=== PATIENT | female | born 1945 | race Two or more races ===

== ENCOUNTER 2019-10-28 07:45 | Day surgery (SDC) | payer OTHER ==
[2019-10-28] VITALS (8 sets, daily range): BP systolic 125–161; BP diastolic 58–83
[~2019-10-28] VITALS: Ht 152.4 cm; Wt 83.5 kg
--- NOTE | 2019-10-28 07:07 | Pre-Procedure Note/Attestation ---
Pre-Procedure Note/Attestation Complete Prior to Procedure Planned Procedure: left Procedure Narrative: left shoulder revision scope with possible resection of loose anchors Indications for Procedure Pre-Operative Diagnosis: left shoulder loose anchors Attestation I attest that I discussed the nature of the procedure; its benefits; risks and complications; and alternatives (and the risks and benefits of such alternatives ), prior to the procedure, with the patient (or the patient's legal claims representative). I attest that, if there was a reasonable possibility of needing a blood transfusion, the patient (or the patient's legal claims representative) was given the [facility] standardized written summary, pursuant to the Crispin Arminda Blood Safety Act ([place] Health and Safety Code # 1645, as amended). I attest that I re-evaluated the patient just prior to the surgery and that there has been no change in the patient's H&P, except as documented below: none Isaías Carpenter MD Oct 28, 2019 07:07
[~2019-10-28 07:45] MED LIST: LISINOPRIL20 MG ORAL; METFORMIN HCL850 M1 ORAL; ZOCOR20 M1 ORAL; ceFAZolin 1gm IVPB IVPB ONE; celeBREX 200mg Cap **SURGERY PATIENTS ONLY ORAL ONE; oxyCONTIN 10mg tab ORAL ONE
[2019-10-28] MEDS ORDERED: NS Irrig 4000ml IRRIG ONE (07:46)
[2019-10-28] MEDS ORDERED: celeBREX 200mg Cap **SURGERY PATIENTS ONLY ORAL ONE (08:40)
[2019-10-28] MEDS ORDERED: oxyCONTIN 20mg tab ORAL ONE (08:40)
[2019-10-28] MEDS ORDERED: oxyCONTIN 10mg tab ORAL ONE (08:44)
[2019-10-28] MEDS ORDERED: DiphenhydrAMINE 50mg/ml Inj IVP PRN (09:15)
[2019-10-28] MEDS ORDERED: Metoclopramide 10mg/2ml Inj IVP PRN (09:15)
[2019-10-28] MEDS ORDERED: Midazolam 2mg/2ml Inj IVP PRN (09:15)
[2019-10-28] MEDS ORDERED: HYDROcodone/Acetamin 7.5/325 tab ORAL PRN (09:15)
[2019-10-28] MEDS ORDERED: oxyCODONE HCL/Acetaminophen 5/325mg ORAL PRN (09:15)
[2019-10-28] MEDS ORDERED: Labetalol 5mg/ml 20ml vial IV PRN (09:15)
[2019-10-28] MEDS ORDERED: fentaNYL 100 mcg/2 mL IV PRN (09:15)
[2019-10-28] MEDS ORDERED: LORazepam Inj 2mg/ml 1ml IV PRN (09:15)
[2019-10-28] MEDS ORDERED: HYDROcodone/Acetamin 5/325 tab ORAL PRN ×2 (09:15)
[2019-10-28] MEDS ORDERED: Hydromorphone 0.5mg/0.5ml inj IVP PRN (09:15)
[2019-10-28] MEDS ORDERED: Ketorolac 30mg Inj IV PRN ×2 (09:15)
[2019-10-28] MEDS ORDERED: Atropine Sulfate 0.4mg/ml inj IVP PRN (09:15)
[2019-10-28] MEDS ORDERED: HYDROmorphone 1mg/ml Carpuject SUBQ PRN (09:15)
[2019-10-28] MEDS ORDERED: LR 1000ml 1,000 ML IVLG SCH (09:15)
[2019-10-28] MEDS ORDERED: Tylenol #3 tab (300mg/30mg) ORAL PRN (09:15)
[2019-10-28] MEDS ORDERED: Meperidine 25mg/0.5ml Inj (FOR RIGORS ONLY) IV PRN (09:15)
[2019-10-28] MEDS ORDERED: propofoL 1,000mg/100ml IV ONE (09:30)
--- NOTE | 2019-10-28 09:33 | Anethesia Preoperative Eval ---
Anesthesia Pre-op PMH/ROS General Date of Evaluation: Oct 28, 2019 Time of Evaluation: 09:36 Anesthesiologist: Jp ASA Score: ASA 3 Mallampati Score Class I : Soft palate, uvula, fauces, pillars visible Class II: Soft palate, uvula, fauces visible Class III: Soft palate, base of uvula visible Class IV: Only hard plate visible Mallampati Classification: Class II Surgeon: Jayden Diagnosis: L Shoulder Pain Surgical Procedure: L Shoulder Arthroscopy Anesthesia History: none Family History: no anesthesia problems Allergies: Coded Allergies: No Known Allergies (Unverified , 10/28/19) Medications: see eMAR Patient NPO?: Yes Past Medical History Cardiovascular: Reports: HTN, other - HL Endocrine: Reports: DM HEENT: Reports: cataract (L), cataract (R) PSxH Narrative: Cholecystectomy, R Femur Sx, B Shoulder SX Anesthesia Pre-op Phys. Exam Physician Exam Last Vital Signs Date Time Temp Pulse Resp B/P (MAP) Pulse Ox O2 Delivery O2 Flow Rate FiO2 10/28/19 08:19 Room Air 10/28/19 08:18 98.0 78 16 125/58 98 Constitutional: NAD Neurologic: CN 2-12 intact Cardiovascular: RRR Respiratory: CTA Gastrointestinal: S/NT/ND Airway Exam Mallampati Score: Class II MO: limited ROM: limited Teeth: missing, intact Anesthesia Pre-op A/P Risk Assessment & Plan Assessment: ASA 3 Plan: GA SED, L Supraclavicular Block Status Change Before Surgery: No Pre-Antibiotics Dru Grams Ancef IV Given Within 1 Hr of Incision: Yes Time Given: 10:01 Roney Trammell MD Oct 28, 2019 09:33
--- NOTE | 2019-10-28 09:34 | Immediate Post-Op Evaluation ---
Immediate Post-Op Evalulation Immediate Post-Op Evalulation Procedure: L Shoulder Arthroscopy Date of Evaluation: Oct 28, 2019 Time of Evaluation: 12:09 IV Fluids: 600 LR Blood Products: 0 Estimated Blood Loss: 30 Urinary Output: 0 Blood Pressure Systolic: 160 Blood Pressure Diastolic: 83 Pulse Rate: 78 Respiratory Rate: 16 O2 Sat by Pulse Oximetry: 100 Temperature (Fahrenheit): 97.4 Pain Score (1-10): 1 Nausea: No Vomiting: No Complications 0 Patient Status: awake, reacts, patent, extubated, none Hydration Status: adequate Dru Grams Ancef IV Given Within 1 Hr of Incision: Yes Time Given: 10:01 Roney Trammell MD Oct 28, 2019 09:34
--- NOTE | 2019-10-28 09:35 | 48 Hour Post Anesthesia Eval ---
Post Anesthesia Evaluation Procedure: L Shoulder Arthroscopy Date of Evaluation: Oct 28, 2019 Time of Evaluation: 14:23 Blood Pressure Systolic: 154 0: 82 Pulse Rate: 76 Respiratory Rate: 18 Temperature (Fahrenheit): 98 O2 Sat by Pulse Oximetry: 100 Airway: patent Nausea: No Vomiting: No Pain Intensity: 1 Hydration Status: adequate Cardiopulmonary Status: Stable Mental Status/LOC: patient returned to baseline Follow-up Care/Observations: 0 Post-Anesthesia Complications: 0 Follow-up care needed: ready to discharge Roney Trammell MD Oct 28, 2019 09:35
[2019-10-28] MEDS ORDERED: Lidocaine 1% MPF 10mg/ml 5ml ONE (09:43)
[2019-10-28] MEDS ORDERED: Ropivacaine 5mg/ml Vial 20ml INJ ONE (09:44)
[2019-10-28] MEDS ORDERED: fentaNYL 100 mcg/2 mL IV ONE (10:51)
[2019-10-28] MEDS ORDERED: EPINEPHrine 1mg/1ml Amp ONE (11:01)
--- NOTE | 2019-10-28 11:52 | Brief Operative Note ---
Immediate Post Operative Note Operative Note Chief Complaint: left shoulder pain Pre-op Diagnosis: left shoulder loose anchors Procedure: left shoulder scope, with debridement and resection of loose sutures and part of a broken anchor Post-op Diagnosis: same as pre-op Findings: consistent w/pre-op dx studies Surgeon: md maritza Director Of Rehabilitation And Wellness: merissa vasquez Anesthesiologist: md bel Anesthesia: general Specimen: yes Complications: none Condition: stable Fluids: ns Estimated Blood Loss: minimal Drains: none Implant(s) used?: No Aliyah Vasquez Oct 28, 2019 11:52
--- NOTE | 2019-10-28 13:30 | NUR ---
Shoulder immobilizer adjusted. Left arm and fingers "still without sensation" as claimed by patient. Good capillary filling to all fingers. Continue ice pack to left shoulder.
[2019-10-28] MEDS ORDERED: D5 1/2NS 1,000 ML IV SCH (15:00)
--- NOTE | 2019-10-28 21:30 | Operative Note - Dictated ---
DATE OF OPERATION: 10/28/2019 PREOPERATIVE DIAGNOSIS: Left shoulder failed rotator cuff repair with loose fragment and loose anchors. POSTOPERATIVE DIAGNOSES: 1. Left shoulder complete rupture of the biceps tendon. 2. Left shoulder anterior, superior, and posterior labral tearing with inflamed tissue. 3. Left shoulder multiple loose fragments of the suture that were torn off the rotator cuff. 4. Left shoulder massive rotator cuff tear involving subscap, supraspinatus, and infraspinatus. 5. Left shoulder glenohumeral arthritis with diffuse humeral head chondral changes and arthritic changes. 6. Loose broken piece of anchor partially submerged inside the humerus and partially out. 7. Subacromial bursitis. PROCEDURE: 1. Left shoulder revision arthroscopy and extensive intra-articular shaving. 2. Left shoulder debridement of the anterior, superior, and posterior labrum. 3. Resection of two large loose fragments of suture. 4. Debridement of the free edge tears of the rotator cuff on a massive irreparable rotator cuff tear. 5. Exploration of the lateral, posterior, and posterolateral as well as anterolateral aspect of the lateral deltoid gutter for any loose fragments of anchors; none were found. 6. Removal of broken partial PEEK anchor that was prominent on the humeral footprint. 7. Subacromial bursoscopy and bursectomy without resection of the acromion. SURGEON: Isaías Carpenter MD. FAMILY MEDICINE PHYSICIAN: LUKE Mayfield. Sorting Cows Worker was present during the actual operative portion of the case and was important and essential part of the operation. During the operation, the assistant professor of life sciences held and operated the arthroscopic camera for visualization, assisted by manipulating the arm to help with visualization, and helped with essential parts of the repair process as necessary such as operating surgical instruments under surgeon supervision, suture management, and wound closures. ANESTHESIOLOGIST: Roney Trammell MD. ANESTHESIA: General LMA anesthesia. ESTIMATED BLOOD LOSS: Minimal. COMPLICATIONS: None. SURGICAL INDICATION: The patient is a 73-year-old female who sustained the above injury to her shoulder. The patient was treated non-operative initially, but this did not alleviate the patients symptoms. Therefore, after discussing all non-surgical and surgical options, and discussing all foreseeable risk and benefits of surgery, the patient opted for surgical treatment as described above. PATIENT POSITIONING: The patient was brought to the operating room table and was placed on the operating room table. All pressure points were well padded. General anesthesia was induced and the patient was then placed in the lateral decubitus position. All pressure points were well padded again and an axillary roll was placed. The patient's shoulder was then prepped and draped in the usual sterile fashion. Time-out was performed and the appropriate preoperative antibiotic was given by the anesthesiologist. EXAMINATION OF SHOULDER UNDER ANESTHESIA: The shoulder was examined under anesthesia with all muscles well relaxed. The shoulder was forward flexed, abducted, and was placed through full range of external and internal rotation. The anterior, posterior, and inferior stability of the shoulder was checked. The exam revealed no evidence of adhesive capsulitis and no evidence of instability. PORTAL PLACEMENT: The posterior portal was established 2 cm inferior and 1 cm medial to the edge of the posterior acromion. A 1-cm skin incision was made using an eleven blade and using the blunt obturator, the cannula was gently placed through the capsule. The mid-glenoid portal was established just lateral to the coracoid process under direct visualization. Direction of the cannula was first established using a spinal needle and subsequently, the cannula was placed through the capsule with a blunt obturator. DIAGNOSTIC ARTHROSCOPY: The biceps tendon was absent and there was fraying and tearing of the superior labrum. The biceps anchor was palpated with a probe and was visualized. There was fraying and tearing of the superior labrum consistent with degenerative labral tearing. The posterior labrum and axillary recess was visualized. There was posterior labral tearing, but actually recess was devoid of any loose fragments or poor tissue. Potentially, there was diffuse glenoid chondral damage anteriorly, posteriorly, and inferiorly. This was grade 3 chondromalacia of the entire glenoid. The articular surface of the rotator cuff was visualized and probed next. There was a massive rotator cuff tear involving supraspinatus and infraspinatus as well as subscap, which was retracted back to the level of the glenoid. The humeral head articular surface was then visualized. The humeral head had diffuse chondral damage with grade 3 and grade 4 chondromalacia posteriorly and superiorly. Next, the anterior labrum, middle glenohumeral ligament, subscapularis tendon, and the anteroinferior glenohumeral ligament were evaluated. The subscap was completely torn. The anterior labrum had some tearing, but with no detachment from the glenoid. The anteroinferior glenohumeral ligaments were intact. At this point, the scope was moved to the mid-glenoid portal and the posterior structures including the posterior labrum, posterior capsule, and posterior cuff were visualized. There was fraying and tearing of the posterior labrum. The subscapularis recess was devoid of any loose bodies and the anterior capsule was well attached to the humeral neck. The middle and anteroinferior glenohumeral ligament was visualized. These structures were completely normal. OPERATIVE DEBRIDEMENTS AND REPAIR: Care was given to all partial-thickness tears and frayed structures in the shoulder joint. The frayed rotator cuff and labrum was debrided using a shaver initially through the anterior portal and subsequently through the posterior portal to complete the debridement. This allowed for smooth debridement of all affected structures and all loose fragments were removed. At this point, care was given to the subacromial space. Subacromial arthroscopy was initiated. There was extensive scar tissue and synovitis in the area. This was debrided using combination of shahida and electrocautery. Once this was completed, the subacromial space could be visualized. There was no major bone spur on the acromion and pursuant to the fact that she had irreparable rotator cuff tear and to prevent further anterior escape instability of the shoulder, no subacromial decompression was performed. Once the subacromial space was debrided, the rotator cuff was visualized. Again, there was a massive retracted rotator cuff tear all the way back to the glenoid. This was grasped using a grasper and mobilization was attempted; however, this could not be mobilized. Subsequently, the multiple sutures were visualized. These were sticking out partially in the rotator cuff and partially in the broken anchors. These were removed and resected. One of the anchors on the humeral head was somewhat proud. This was probed and it appeared to be loose. This was grasped with a grasper and was pulled out. The second anchor was inside the bone and was further pushed inside the bone to prevent it from becoming a loose fragment. At this point, the posterior, lateral, anterolateral, and posterolateral gutters of the deltoid and humerus were debrided and visualized. There were no loose fragments of anchors in the area. Pursuant to the MRIs, some of the anchors were more in the lateral and posterolateral aspect of the deltoid muscle and decision was made not to cause more damage to the deltoid muscle digging around trying to find those anchors. At this point, all wounds were thoroughly irrigated using copious amount of fluid. CONDITION AT DISCHARGE FROM OPERATING ROOM: The skin was re-approximated and sterile dressing and sling were applied. All lap counts and instrument counts were correct. The patient tolerated the procedure well without complications and was taken to the recovery room in stable conditions. Isaías Carpenter M.D. DR: Chava JOB#: [id number] CC:
== END 2019-10-28 13:30 | disposition home or self-care (01) ==
LOC: SUR 07:45
DX: S46.212A Strain of muscle, fascia and tendon of other parts of biceps, left arm, initial encounter (principal); M94.212 Chondromalacia, left shoulder; S43.432A Superior glenoid labrum lesion of left shoulder, initial encounter; M24.012 Loose body in left shoulder; M75.122 Complete rotator cuff tear or rupture of left shoulder, not specified as traumatic; M19.012 Primary osteoarthritis, left shoulder; M75.52 Bursitis of left shoulder; E11.9 Type 2 diabetes mellitus without complications; I10 Essential (primary) hypertension; Z90.49 Acquired absence of other specified parts of digestive tract; Z79.899 Other long term (current) drug therapy; Z79.84 Long term (current) use of oral hypoglycemic drugs
CPT/HCPCS: 29819; 29823; 94003; J0171; J0690; J1100; J2250; J2405; J2704; J2795; J3010; 94150